=== PATIENT | female | born 1955 | race Caucasian/White ===

== ENCOUNTER → 2017-02-19 | Outpatient (CLI) | payer OTHER | LOC: FIMAGING 14:38 | DX: Z12.31 Encounter for screening mammogram for malignant neoplasm of breast (principal) | CPT/HCPCS: G0202 ==

== ENCOUNTER 2018-03-15 16:25 | Emergency (ER) | payer BC ==
--- NOTE | 2018-03-15 16:58 | CPEKG ---
Heart Rate: 69 RR Interval: 870 P-R Interval: 212 QRSD Interval: 70 QT Interval: 420 QTC Interval: 450 P Prairie: 4 QRS Prairie: -3 T Wave [place]: 42 EKG Severity - BORDERLINE ECG - EKG Impression: SINUS RHYTHM EKG Impression: LOW VOLTAGE THROUGHOUT EKG Impression: BORDERLINE R WAVE PROGRESSION, ANTERIOR LEADS Electronically Signed By: Dominique Chopra 15-Mar-2018 18:48:36
[2018-03-15 17:11] LABS: PLATELET COUNT 290 10^3/uL (150-400)
--- NOTE | 2018-03-15 18:26 | EDPHY ---
H & P Stated Complaint: dizziness hypotension episodes x 2 weeks-worse last night Time Seen by Provider: 03/15/18 16:40 HPI/ROS: Chief complaint: Low blood pressure History of present illness: This is a 62-year-old female who was sent to the emergency department by her primary care doctor for evaluation of low blood pressure. Patient believes she has been suffering from low blood pressure over the last 2 and a half weeks. She reports she has felt dizzy, described as a lightheadedness, from time to time. She feels fatigued. In addition, earlier today when she felt dizzy she felt like she had a hard time finding her words. She has noted her systolic pressure to be low during this period of time. She was at the dentist's office today and her blood pressure was noted to be in the 80s systolic. She went to her primary care doctor's office who again measured it and it remained in the 80s. She was asked come here. She denies other associated signs or symptoms including no actual loss of consciousness. No fevers or infectious symptoms. No pain including no chest pain. No shortness of breath. No abdominal pain. No bowel or bladder symptoms. She has been traveling extensively recently. Review of systems: A 10 point review of systems was obtained and other than described above was negative - Medical/Surgical History Hx Asthma: No Hx Chronic Respiratory Disease: No Hx Diabetes: No Hx Cardiac Disease: No Hx Renal Disease: No Hx Cirrhosis: No Hx Alcoholism: No Hx HIV/AIDS: No Hx Splenectomy or Spleen Trauma: No Other PMH: hypothyroid, high chol - Social History Smoking Status: Never smoked - Physical Exam Exam: General Appearance: Alert, no distress. Eyes: Pupils equal and round no pallor or injection. ENT, Mouth: Mucous membranes moist. Respiratory: There are no retractions, lungs are clear to auscultation. Cardiovascular: Regular rate and rhythm. Gastrointestinal: Abdomen is soft and non tender, no masses, bowel sounds normal. Neurological: Alert and oriented x4. Cranial nerves 2-12 grossly intact. Strength and sensation intact and symmetrical. No pronator drift. Normal balance. Normal gait. Skin: Warm and dry, no rashes. Musculoskeletal: Neck is supple non tender. Extremities are symmetrical, full range of motion. Psychiatric: Patient is oriented X 3, there is no agitation. Constitutional: Initial Vital Signs Temperature (C) 37.0 C 03/15/18 16:38 Heart Rate 75 03/15/18 16:38 Respiratory Rate 16 03/15/18 16:38 Blood Pressure 112/58 L 03/15/18 16:38 O2 Sat (%) 95 03/15/18 16:38 O2 Delivery Mode Room Air Allergies/Adverse Reactions: Penicillins Allergy (Verified 12/26/14 10:37) Sulfa (Sulfonamide Antibiotics) Allergy (Verified 12/26/14 10:37) tetracycline Allergy (Verified 12/26/14 10:37) Home Medications: Medication Instructions Recorded Levothyroxine [Synthroid 25 mcg 12/26/14 (*)] Estrogens,Conjugated 03/15/18 Medical Decision Making - Diagnostics Imaging Results: Imaging Impressions Head CT 03/15/18 16:53 Impression: No acute intracranial findings. If symptoms persist and clinical suspicion warrants, consider MRI. Findings discussed with ROD Herrera 03/15/2018 at 17:54. Chest X-Ray 03/15/18 17:31 Impression: 1. Bronchitis/airways disease. 2. No definite pneumonia. ED Course/Re-evaluation: Patient is discussed with my secondary supervising physician Dr. Erwin Sanford. Patient presents to the emergency department reporting systolic hypotension with associated dizziness and even some word-finding difficulty. On my evaluation she is nontoxic. Initial blood pressure is normal. Orthostatic blood pressures are normal. The rest of her vital signs are stable. Laboratory studies and EKG are unremarkable. CT scan of the head is unremarkable. She has remained normotensive the entire time in the emergency room. She has been IV hydrated. She will be discharged home and she is feeling well. I have asked her to monitor her blood pressure at home. She does have a primary care doctor who sent her here. She is asked to call her primary care doctor tomorrow for recheck without fail. Strict return precautions are given. Differential Diagnosis: Included but not limited to hypotension secondary to volume depletion such as dehydration or anemia, electrolyte disturbances, cardiac disturbances, pulmonary embolism, infectious symptoms - Data Points Laboratory Results: Laboratory Results 03/15/18 16:55 03/15/18 16:55 03/15/18 03/15/18 03/15/18 18:20 16:55 16:55 WBC RBC Hgb Hct MCV MCH MCHC RDW Plt Count MPV Neut % (Auto) Lymph % (Auto) [place] % (Auto) Eos % (Auto) Baso % (Auto) Nucleat RBC Rel Count Absolute Neuts (auto) Absolute Lymphs (auto) Absolute Monos (auto) Absolute Eos (auto) Absolute Basos (auto) Absolute Nucleated RBC Immature Gran % Immature Gran # D-Dimer < 0.27 ug/mLFEU ug/mLFEU (0.00-0.50) Sodium 138 mEq/L mEq/L (135-145) Potassium 4.2 mEq/L mEq/L (3.5-5.2) Chloride 105 mEq/L mEq/L (97-110) Carbon Dioxide 26 mEq/l mEq/l (22-31) Anion Gap 7 mEq/L L mEq/L (8-16) BUN 18 mg/dL mg/dL (7-23) Creatinine 0.8 mg/dL mg/dL (0.6-1.0) Estimated GFR > 60 Glucose 90 mg/dL mg/dL (70-100) Calcium 8.6 mg/dL mg/dL (8.5-10.4) Troponin I < 0.012 ng/mL ng/mL (0.000-0.034) TSH 0.846 uIU/mL uIU/mL (0.465-4.680) Urine Color PALE YELLOW Urine Appearance CLEAR Urine pH 7.0 (5.0-7.5) Ur Specific Chloride 1.010 (1.002-1.030) Urine Protein NEGATIVE (NEGATIVE) Urine Ketones NEGATIVE (NEGATIVE) Urine Blood NEGATIVE (NEGATIVE) Urine Nitrate NEGATIVE (NEGATIVE) Urine Bilirubin NEGATIVE (NEGATIVE) Urine Urobilinogen NEGATIVE EU EU (0.2-1.0) Ur Leukocyte Esterase NEGATIVE (NEGATIVE) Urine RBC 3-5 /hpf H /hpf (0-3) Urine WBC 1-3 /hpf /hpf (0-3) Ur Epithelial Cells TRACE /lpf /lpf (NONE-1+) Urine Mucus TRACE /lpf /lpf (NONE-1+) Urine Glucose NEGATIVE (NEGATIVE) 03/15/18 16:55 WBC 6.63 10^3/uL 10^3/uL (3.80-9.50) RBC 4.53 10^6/uL 10^6/uL (4.18-5.33) Hgb 14.5 g/dL g/dL (12.6-16.3) Hct 39.7 % % (38.0-47.0) MCV 87.6 fL fL (81.5-99.8) MCH 32.0 pg pg (27.9-34.1) MCHC 36.5 g/dL g/dL (32.4-36.7) RDW 13.2 % % (11.5-15.2) Plt Count 290 10^3/uL 10^3/uL (150-400) MPV 10.1 fL fL (8.7-11.7) Neut % (Auto) 42.9 % % (39.3-74.2) Lymph % (Auto) 38.5 % % (15.0-45.0) [place] % (Auto) 9.7 % % (4.5-13.0) Eos % (Auto) 8.4 % H % (0.6-7.6) Baso % (Auto) 0.3 % % (0.3-1.7) Nucleat RBC Rel Count 0.0 % % (0.0-0.2) Absolute Neuts (auto) 2.85 10^3/uL 10^3/uL (1.70-6.50) Absolute Lymphs (auto) 2.55 10^3/uL 10^3/uL (1.00-3.00) Absolute Monos (auto) 0.64 10^3/uL 10^3/uL (0.30-0.80) Absolute Eos (auto) 0.56 10^3/uL H 10^3/uL (0.03-0.40) Absolute Basos (auto) 0.02 10^3/uL 10^3/uL (0.02-0.10) Absolute Nucleated RBC 0.00 10^3/uL 10^3/uL (0-0.01) Immature Gran % 0.2 % % (0.0-1.1) Immature Gran # 0.01 10^3/uL 10^3/uL (0.00-0.10) D-Dimer Sodium Potassium Chloride Carbon Dioxide Anion Gap BUN Creatinine Estimated GFR Glucose Calcium Troponin I TSH Urine Color Urine Appearance Urine pH Ur Specific Chloride Urine Protein Urine Ketones Urine Blood Urine Nitrate Urine Bilirubin Urine Urobilinogen Ur Leukocyte Esterase Urine RBC Urine WBC Ur Epithelial Cells Urine Mucus Urine Glucose Departure - Departure Disposition: Home, Routine, Self-Care Clinical Impression: Hypotension Qualifiers: Hypotension type: unspecified hypotension type Qualified Code(s): I95.9 - Hypotension, unspecified Condition: Good Instructions: Hypotension (ED) Additional Instructions: Follow-up with her primary care doctor tomorrow for recheck without fail Drink plenty of fluids to stay hydrated Monitor your blood pressure 2 to 3 times daily, check each arm If symptoms worsen or new symptoms develop return immediately to the emergency room Referrals: Adina Townsend MD [Primary Care Provider] - As per Instructions Mateo Bashir MD [Medical Doctor] - As per Instructions
[2018-03-15 19:35] VITALS: BP 111/68
== END 2018-03-15 19:29 | disposition home or self-care (01) ==
DX: I95.9 Hypotension, unspecified (principal)

== ENCOUNTER → 2019-02-08 | Outpatient (CLI) | payer BC | LOC: FIMAGING 15:06 | PROVIDERS: ATTEND Family Medicine | DX: Z12.31 Encounter for screening mammogram for malignant neoplasm of breast (principal) ==

== ENCOUNTER → 2019-02-14 | Outpatient (CLI) | payer BC | LOC: FIMAGING 12:43 | PROVIDERS: ATTEND Family Medicine | DX: R92.0 Mammographic microcalcification found on diagnostic imaging of breast (principal) ==

== ENCOUNTER → 2019-02-28 | Day surgery (SDC) | payer BC ==
[~2019-02-28] MED LIST: BUPIVACAINE 0.5% 30 ML SDV ONE; LIDOCAINE 1% 300 MG/30 ML SDV ONE
== END | disposition home or self-care (01) ==
LOC: FIMAGING 07:22
PROVIDERS: ATTEND Radiology Diagnostic Radiology
PROC: 0HBT3ZX Excision of Right Breast, Percutaneous Approach, Diagnostic (ICD-10-PCS; principal; 2019-02-28)
PROC: BH00ZZZ Plain Radiography of Right Breast (ICD-10-PCS; principal; 2019-02-28)
DX: R92.0 Mammographic microcalcification found on diagnostic imaging of breast (principal)